=== PATIENT | male | born 1990 | race Caucasian/White ===

== ENCOUNTER 2016-10-27 01:55 | Emergency (ER) | payer BC ==
[2016-10-27 02:05] VITALS: TEMP 98.1
[2016-10-27] MEDS ORDERED: RT ALBUTER2.5 MG/0.5 IH (02:08)
[2016-10-27] MEDS ORDERED: PREDNISONE20 MG PO (02:42)
[2016-10-27 03:21] VITALS: BP 134/94; PULSE 91
[2016-10-27] MEDS ORDERED: FLOVENT 110MCG7.9 GM IH (03:34)
== END 2016-10-27 03:35 | disposition home or self-care (01) ==
LOC: COL.ER 01:55
DX: J45.901 Unspecified asthma with (acute) exacerbation (principal); M54.6 Pain in thoracic spine
CPT/HCPCS: J7512; Q9967

== ENCOUNTER 2017-08-10 05:20 | Emergency (ER) | payer BC ==
[~2017-08-10] VITALS: Ht 175.3 cm; Wt 106.5 kg
[~2017-08-10 05:20] MED LIST: FLOVENT 110MCG7.9 GM IH; PREDNISONE20 MG PO; RT ALBUTER2.5 MG/0.5 IH
[2017-08-10 05:23] VITALS: TEMP 97.9
[2017-08-10 05:47] LABS: BASO % 0.5 % (0.0-2.0); EOS # 0.5 (0.0-0.7); EOS % 5.7 % (0-4.0); GRAN # 4.5 (1.4-6.5); GRAN % 50.3 % (42.2-75.2); HEMATOCRIT 44.2 % (42.0-52.0); HEMOGLOBIN 15.2 g/dl (13.5-18.0); LYMPH # 3.2 (1.2-3.4); MEAN CELL VOLUME 88 fl (80.0-100.0); MEAN CORPUSCULAR HEMOGLOBIN 30 pg (27.0-31.0); MEAN CORPUSCULAR HGB CONC 34 g/dl (33.0-37.0); MEAN PLATELET VOLUME 9.4 fl (7.4-10.4); MONO # 0.6 (0.1-0.6); MONO % 7.2 % (1.7-9.3); PLATELET COUNT 273 K/mm3 (130-400); RED BLOOD COUNT 5.05 M/mm3 (4.20-5.60); WHITE BLOOD COUNT 8.9 K/mm3 (4.8-10.8)
[2017-08-10] MEDS ORDERED: VENTOLIN0.09 MG IH (05:57)
[2017-08-10] MEDS ORDERED: RT ADVAIR 228 DISKUS IH (05:57)
[2017-08-10] MEDS ORDERED: ALBUTEROL0.83 MG/ML IH (05:58)
[2017-08-10 06:06] LABS: ALANINE AMINOTRANSFERASE 41 U/L (21-72); ALBUMIN 4.9 gm/dL (3.5-5.0); ALKALINE PHOSPHATASE 53 U/L (50-136); ANION GAP 13 mmol/L (7-16); BILIRUBIN,TOTAL 0.8 mg/dL (0.0-1.0); BLOOD UREA NITROGEN 15 mg/dL (9-20); C-REACTIVE PROTEIN < 0.5 mg/dL (0.0-0.9); CALCIUM 9.7 mg/dL (8.4-10.2); CARBON DIOXIDE 23 mmol/L (22-30); CHLORIDE 105 mmol/L (98-107); CREATININE, serum 1.03 mg/dL (0.66-1.25); GLUCOSE 92 mg/dL (74-106); SODIUM 141 mmol/L (137-145); TOTAL PROTEIN 7.9 gm/dL (6.4-8.2)
[2017-08-10] MEDS ORDERED: NORCO 325 MG-51 TAB PO (06:06)
[2017-08-10 07:16] LABS: COLLECTION METHOD CLEAN CATCH
[2017-08-10 07:23] LABS: MUCOUS Present /lpf; PH 5 (5-8); SQUAMOUS EPITHELIAL 0-2 /hpf; URINE APPEARANCE Clear; URINE BACTERIA None Seen /hpf; URINE BILIRUBIN Negative (NEGATIVE); URINE BLOOD 3+ (NEGATIVE); URINE COLOR Yellow; URINE GLUCOSE Negative (NEGATIVE); URINE KETONE Negative (NEGATIVE); URINE LEUKOCYTE ESTERASE Negative (NEGATIVE); URINE PROTEIN(semi-quant) Negative (NEGATIVE); URINE UROBILINOGEN Negative (NEGATIVE); URINE WBC 0-2 /hpf
[2017-08-10 07:35] VITALS: BP 122/66; PULSE 65
== END 2017-08-10 07:40 | disposition home or self-care (01) ==
LOC: COL.ER 05:20
PROVIDERS: Family Medicine
DX: R10.9 Unspecified abdominal pain (principal); J45.909 Unspecified asthma, uncomplicated
CPT/HCPCS: J1885; J2405; J7030